=== PATIENT | female | born 1985 | race Caucasian/White ===

== ENCOUNTER 2021-03-14 16:14 | Emergency (ER) | payer OTHER ==
[~2021-03-14 16:14] MED LIST: FLEXERIL 10 MG10 MG PO; HYDROCODONE-HOMA5 ML PO; IBUPROFEN600 MG PO
[2021-03-14 18:55] LABS: HEMOGLOBIN 13.4 gm/dl (12.3-15.3); RED BLOOD COUNT 4.6 M/UL (4.00-5.10); WHITE BLOOD COUNT 8.4 K/UL (4.5-11.0)
[2021-03-14 19:26] LABS: BUN/CREATININE RATIO 13 (0-10)
[2021-03-14] MEDS ORDERED: ZOFRAN ODT 4 MG4 MG SL (21:02)
== END 2021-03-14 21:30 | disposition home or self-care (01) ==
LOC: ER1 16:14
PROVIDERS: Physician Assistant Medical
DX: A08.4 Viral intestinal infection, unspecified (principal)
CPT/HCPCS: 80053; 81001; 83690; 84703; 85025; 96374; 96375; 99284; J1885; J2405